=== PATIENT | male | born 1960 | race Caucasian/White ===

== ENCOUNTER 2017-10-19 10:10 | Emergency (ER) | payer OTHER ==
[~2017-10-19] VITALS: Ht 177.8 cm; Wt 78.0 kg
[~2017-10-19 10:10] MED LIST: FLOMAX0.4 MG
== END 2017-10-19 11:44 | disposition home or self-care (01) ==
LOC: ED 10:10
DX: G43.909 Migraine, unspecified, not intractable, without status migrainosus (principal); E78.5 Hyperlipidemia, unspecified; Z79.899 Other long term (current) drug therapy
CPT/HCPCS: 70450; 96361; 96374; 96375; 99284; J1200; J1885; J2765; J7030

== ENCOUNTER 2023-01-22 11:30 | Emergency (ER) | payer OTHER ==
[~2023-01-22] VITALS: Ht 177.8 cm; Wt 85.4 kg
[2023-01-22 12:24] LABS: BASOPHILS 0.2 % (0-2); EOSINOPHILS 0.5 % (0-6); HEMOGLOBIN 14.7 g/dL (12.0-18.0); LYMPHOCYTES 12.9 % (24-44); MCH 30.2 (27-36); MCHC 34.1 g/dl (30-36); MCV 88.6 fl (81-99); MONOCYTES 9.3 % (0-12); NEUTROPHILS 77.1 % (39-80); PLATELET COUNT 195 K/uL (140-440); RBC 4.85 M/ul (4.3-5.7); RDW 13.4 (10.5-15.0)
[2023-01-22 12:33] LABS: ALBUMIN 3.6 g/dL (3.4-5.0); ALBUMIN/GLOBULIN RATIO 1.06 (1.1-2.4); ANION GAP 13.4 (7-21); BILIRUBIN, TOTAL 1.6 ng/dL (0.2-1.0); BUN/CREATININE RATIO 17.52 (6.0-28.6); CALCIUM 8.8 mg/dL (8.5-10.1); CREATININE, SERUM 0.97 mg/dL (0.70-1.30); POTASSIUM 4.4 mmol/L (3.5-5.1)
[2023-01-22 12:34] LABS: BILIRUBIN, URINE NEGATIVE (negative); BLOOD/HGB, URINE NEGATIVE (Negative); KETONE, URINE NEGATIVE (Negative); LEUK ESTERASE, URINE NEGATIVE (negative); NITRITE, URINE NEGATIVE (negative)
[2023-01-22] MEDS ORDERED: AMOX TR-K CLV1 EAC1 PO (14:45)
[2023-01-22 15:01] VITALS: BP 131/78
== END 2023-01-22 15:00 | disposition home or self-care (01) ==
LOC: ED 11:30
PROVIDERS: Emergency Medicine
DX: K57.32 Diverticulitis of large intestine without perforation or abscess without bleeding (principal)
CPT/HCPCS: 36415; 74177; 80053; 81003; 83690; 85025; 99284-25; Q9967